=== PATIENT | male | born 1970 | race Caucasian/White ===

== ENCOUNTER 2016-08-10 15:54 | Emergency (ER) | payer SELFPAY ==
[2016-08-10] MEDS ORDERED: Ondansetron 4 MG/2 ML SDV IVPUSH ONE (16:29)
[2016-08-10] MEDS ORDERED: Sodium Chloride 0.9% 2.5 ML Syringe FLUSH PRN (16:29)
[2016-08-10] MEDS ORDERED: Pantoprazole 40 MG Vial IVPUSH ONE (16:29)
[2016-08-10] MEDS ORDERED: Sodium Chloride 0.9% 1,000 ML IV ONE (16:29)
[2016-08-10] MEDS ORDERED: Sodium Chloride 0.9% 10 ML Syringe FLUSH PRN (16:29)
--- NOTE | 2016-08-10 16:33 | EDM.PDOC ---
ED HPI GENERAL MEDICAL PROBLEM - General Chief Complaint: Gastrointestinal Problem Stated Complaint: SEVERE ABDOMINAL PAIN/VOMITING Time Seen by Provider: 08/10/16 16:00 - History of Present Illness INITIAL COMMENTS - FREE TEXT/NARRATIVE: HISTORY AND PHYSICAL: History of present illness: The patient is a 46-year-old male who does not live here locally and travels with the [facility] and has a 2 year history of episodic right-sided abdominal pain which is not this really associated with any foods or alcohol use; he comes in tonight saying that he has 1-2 episodes minimal per month which is not new for him but last evening he had a very severe episode of this pain which woke him from sleep at 3 AM. It was associated with multiple episodes of vomiting which were dark in color. He's had no diarrhea and has had no black or bloody stools and has no urinary complaints of hematuria but does state he is going to the bathroom more often. The patient has a history of "liver problems" that he believes he was diagnosed with hep C many years ago from chronic alcohol use and heavy alcohol use when he was younger. He does admit that he does drink semi-regularly since that time and his last drink was 3 days ago. The patient has not taken any [id number] medications and says the pain is all longer as intense as it was this morning. Patient states that the pain will radiate up to his right upper abdomen and his right flank but not to his chest. He is Concerned about his liver. He has no gallbladder or colon issues and no history of pancreatitis. Patient denies any chest pain or shortness of breath but has had feverish feelings but no documented fever no upper respiratory symptoms. He's eating and drinking normally and has no history of food intolerance. Patient currently does not have a GI physician. The patient states he has a history of hypertension and he supposed be on medications but he does not have those meds and has not taken them Review of systems: As per history of present illness and below otherwise all systems reviewed and negative. Past medical history: As per history of present illness and as reviewed below otherwise noncontributory. Surgical history: As per history of present illness and as reviewed below otherwise noncontributory. Social history: No reported history of drug or alcohol abuse. Family history: As per history of present illness and as reviewed below otherwise noncontributory. Physical exam: Gen.: Well-developed well-nourished thin man is nontoxic and moves easily in ED without distress. Vital signs of the note by me HEENT: Atraumatic, normocephalic, pupils reactive, negative for conjunctival pallor or scleral icterus, mucous membranes moist, throat clear, neck supple, nontender, trachea midline. Lungs: Clear to auscultation, breath sounds equal bilaterally, chest nontender. Heart: S1S2, regular, negative for clicks, rubs, or JVD. Abdomen: Soft, nondistended, nontender. On my exam I was unable to elicit any tenderness on deep palpation on the right side of the abdomen. Bowel sounds are slightly hypoactive Negative for masses or hepatosplenomegaly. Negative for costovertebral tenderness. Pelvis: Stable nontender. Genitourinary: Deferred. Rectal: Normal tone no evidence of any masses or external hemorrhoids and no fissures. Stool is light brown in color and Hemoccult negative Extremities: Atraumatic, negative for cords or calf pain. Neurovascular unremarkable. Neuro: Awake, alert, oriented. Cranial nerves II through XII unremarkable. Cerebellum unremarkable. Motor and sensory unremarkable throughout. Exam nonfocal. Diagnostics: CBC CMP amylase lipase INR CT scan of the abdomen and pelvis Therapeutics: IV fluids Zofran Protonix I discussed with the patient all testing results and have recommended follow- up with GI or one of our clinic physicians for endoscopy. I will place him on a PPI and have advised him to refrain from alcohol use as well as other gastric irritating foods and substances. Advised him on reasons to return to the ED. Impression: Episodic abdominal pain acute on chronic stable Definitive disposition and diagnosis as appropriate pending reevaluation and review of above. Abdominal Pain Score (Numeric/FACES): 8 - Related Data Allergies Allergy/AdvReac Type Severity Reaction Status Date / Time morphine Allergy Edema Verified 08/10/16 16:12 Penicillins Allergy Edema Verified 08/10/16 16:12 Home Meds: Home Meds . [No Known Home Meds] 08/10/16 [History] Past Medical History - Past Health History Medical/Surgical History: Denies Medical/Surgical History Cardiovascular History: Reports: Hypertension Gastrointestinal History: Reports: Hepatitis Other Gastrointestinal History: Hepatitis B diagnosed 4 years ago - Infectious Disease History Infectious Disease History: Reports: Chicken Pox, Hepatitis B - Past Surgical History GI Surgical History: Reports: None Social & Family History - Family History Family Medical History: Noncontributory - Tobacco Use Smoking Status *Q: Current Every Day Smoker Years of Tobacco use: 35 Packs/Tins Daily: 1 Used Tobacco, but Quit: No Second Hand Smoke Exposure: Yes - Caffeine Use Caffeine Use: Reports: Coffee - Alcohol Use Days Per Week of Alcohol Use: 4 Number of Drinks Per Day: 3 Total Drinks Per Week: 12 - Recreational Drug Use Recreational Drug Use: Yes Drug Use in Last 12 Months: Yes Recreational Drug Type: Reports: Marijuana/Hashish Recreational Drug Use Frequency: Weekly ED ROS GENERAL - Review of Systems Review Of Systems: ROS reveals no pertinent complaints other than HPI. ED EXAM, GENERAL - Physical Exam Exam: See Below (See dictation) Course - Vital Signs Last Recorded V/S: Last Vital Signs Temp 36.9 C 08/10/16 16:13 Pulse 103 H 08/10/16 16:13 Resp 18 08/10/16 16:13 BP 133/91 H 08/10/16 16:13 Pulse Ox 97 08/10/16 16:13 - Orders/Labs/Meds Orders: Active Orders 24 hr Category Date Time Status Abdomen Pelvis w Cont [CT] Stat Exams 08/10/16 16:28 Taken Sodium Chloride 0.9% [Saline Flush] Med 08/10/16 16:29 Active 10 ml FLUSH ASDIRECTED PRN Sodium Chloride 0.9% [Saline Flush] Med 08/10/16 16:29 Active 2.5 ml FLUSH ASDIRECTED PRN Saline Lock Insert [OM.PC] Stat Oth 08/10/16 16:28 Ordered Medication Orders Sodium Chloride (Saline Flush) 10 ml FLUSH ASDIRECTED PRN PRN Reason: Keep Vein Open Last Admin: 08/10/16 17:00 Dose: 10 ml Sodium Chloride (Saline Flush) 2.5 ml FLUSH ASDIRECTED PRN PRN Reason: Keep Vein Open Last Admin: 08/10/16 17:00 Dose: 2.5 ml Labs: Laboratory Tests 08/10/16 08/10/16 08/10/16 Range/Units 16:39 16:39 16:39 WBC 11.53 H (4.0-11.0) K/uL RBC 5.38 (4.50-5.90) M/uL Hgb 16.7 (13.0-17.0) g/dL Hct 48.9 (38.0-50.0) % MCV 90.9 (80.0-98.0) fL MCH 31.0 (27.0-32.0) pg MCHC 34.2 (31.0-37.0) g/dL RDW Std Deviation 47.5 (28.0-62.0) fl RDW Coeff of Jaison 14 (11.0-15.0) % Plt Count 342 (150-400) K/uL MPV 8.90 (7.40-12.00) fL Neut % (Auto) 61.0 (48.0-80.0) % Lymph % (Auto) 27.1 (16.0-40.0) % [place] % (Auto) 11.4 (0.0-15.0) % Eos % (Auto) 0.3 (0.0-7.0) % Baso % (Auto) 0.2 (0.0-1.5) % Neut # (Auto) 7.0 H (1.4-5.7) K/uL Lymph # (Auto) 3.1 H (0.6-2.4) K/uL [place] # (Auto) 1.3 H (0.0-0.8) K/uL Eos # (Auto) 0.0 (0.0-0.7) K/uL Baso # (Auto) 0.0 (0.0-0.1) K/uL Nucleated RBC % 0.0 /100WBC Nucleated RBCs # 0 K/uL INR 0.98 (0.86-1.11) Sodium 140 (136-146) mmol/L Potassium 4.2 (3.5-5.1) mmol/L Chloride 103 (98-110) mmol/L Carbon Dioxide 27 (21-31) mmol/L BUN 17 (6.0-23.0) mg/dL Creatinine 1.0 (0.6-1.5) mg/dL Est Cr Clr Drug Dosing 100.43 mL/min Estimated GFR (MDRD) > 60.0 ml/min Glucose 100 (60-110) mg/dL Calcium 9.3 (8.8-10.8) mg/dL Total Bilirubin 0.7 (0.1-1.5) mg/dL AST 37 (5-40) IU/L ALT 50 (8-54) IU/L Alkaline Phosphatase 93 (40-150) Total Protein 7.9 (6.0-8.0) g/dL Albumin 4.5 (3.5-5.0) g/dL Globulin 3.4 (2.0-3.5) g/dL Albumin/Globulin Ratio 1.3 (1.3-2.8) Amylase 60 (10-90) U/L Lipase 18 (7-80) U/L Meds: Medications Generic Name Dose Route Start Last Admin Trade Name Freq PRN Reason Stop Dose Admin Sodium Chloride 10 ml 08/10/16 16:29 08/10/16 17:00 Saline Flush FLUSH 10 ml ASDIRECTED PRN Administration Keep Vein Open Sodium Chloride 2.5 ml 08/10/16 16:29 08/10/16 17:00 Saline Flush FLUSH 2.5 ml ASDIRECTED PRN Administration Keep Vein Open Discontinued Medications Generic Name Dose Route Start Last Admin Trade Name Freq PRN Reason Stop Dose Admin Sodium Chloride 1,000 mls @ 999 mls/hr 08/10/16 16:29 08/10/16 16:59 Normal Saline IV 08/10/16 17:29 999 mls/hr STAT ONE Administration Ondansetron HCl 4 mg 08/10/16 16:29 08/10/16 16:59 Zofran IVPUSH 08/10/16 16:30 4 mg ONETIME ONE Administration Pantoprazole Sodium 80 mg 08/10/16 16:29 08/10/16 16:59 Protonix Iv IVPUSH 08/10/16 16:30 80 mg .BOLUS ONE Administration Departure - Departure Time of Disposition: 18:15 Disposition: Home, Self-Care 01 Condition: Good Clinical Impression: Abdominal pain, Vomiting - Discharge Information Forms: ED Department Discharge Additional Instructions: The following information is given to patients seen in the emergency department who are being discharged to home. This information is to outline your options for follow-up care. We provide all patients seen in our emergency department with a follow-up referral. The need for follow-up, as well as the timing and circumstances, are variable depending upon the specifics of your emergency department visit. If you don't have a primary care physician on staff, we will provide you with a referral. We always advise you to contact your personal physician following an emergency department visit to inform them of the circumstance of the visit and for follow-up with them and/or the need for any referrals to a consulting specialist. The emergency department will also refer you to a specialist when appropriate. This referral assures that you have the opportunity for followup care with a specialist. All of these measure are taken in an effort to provide you with optimal care, which includes your followup. Under all circumstances we always encourage you to contact your private physician who remains a resource for coordinating your care. When calling for followup care, please make the office aware that this follow-up is from your recent emergency room visit. If for any reason you are refused follow-up, please contact the [facility] emergency department at and ask to speak to the emergency department charge nurse. [facility] Primary care- Internal Medicine and [facility] [address] [place] [id number] [facility] Specialty Care-General Surgery Professional Building [address] [place] [id number] Please contact one of our primary care physicians and one of our surgeons to assist with further testing and evaluation of your symptoms. If you cannot do this here in town please do it when you get home as soon as possible. Please take medication as prescribed and avoid alcohol use caffeine use and other irritating foods and substances. Return to ER as needed and as discussed. - My Orders Last 24 Hours: My Active Orders 08/10/16 16:28 Abdomen Pelvis w Cont [CT] Stat Saline Lock Insert [OM.PC] Stat 08/10/16 16:29 Sodium Chloride 0.9% [Saline Flush] 10 ml FLUSH ASDIRECTED PRN Sodium Chloride 0.9% [Saline Flush] 2.5 ml FLUSH ASDIRECTED PRN - Assessment/Plan Last 24 Hours: My Active Orders 08/10/16 16:28 Abdomen Pelvis w Cont [CT] Stat Saline Lock Insert [OM.PC] Stat 08/10/16 16:29 Sodium Chloride 0.9% [Saline Flush] 10 ml FLUSH ASDIRECTED PRN Sodium Chloride 0.9% [Saline Flush] 2.5 ml FLUSH ASDIRECTED PRN
[2016-08-10 17:06] LABS: CHLORIDE,CL 103 mmol/L (98-110); SODIUM,NA 140 mmol/L (136-146)
[2016-08-10 18:41] VITALS: BP 147/82
[2016-08-10] MEDS ORDERED: Iopamidol 755 MG/ML 500 ML Multipack Bottle IVPUSH STA (19:19)
--- NOTE | 2016-08-11 07:54 | CT ---
EXAM DATE: 08/10/16 PATIENT'S AGE: 46 Patient: ELIAS AVINA Facility: [place], [place] Site . Site : 1970 Study: CT Abdomen/Pelvis [id number] 6:01:35 PM Ordering Physician: Ronen Piper Final Report: INDICATION: Abdominal pain. Comparison: None. Technique: CT abdomen and pelvis with intravenous contrast; no oral contrast; coronal and sagittal reformats. Findings: No abnormal intra pulmonary nodular densities through the lung bases. No evidence of pleural effusion. Normal size cardiac silhouette without any evidence of pericardial effusion. Small benign cyst segment 3 of the liver. No focal hepatic or splenic pathology. No pancreatic pathology. Gallbladder is unremarkable. No adrenal pathology. Symmetric perfusion of both the kidneys without any obstructive uropathy or perinephric pathology. No retroperitoneal lymphadenopathy. No evidence of abdominal or pelvic ascites. Normal appendix. CT study of the pelvis is unremarkable. No evidence of intestinal obstruction. Impression: Small cyst segment 3 of the liver. 1. No kidney stones or obstructive uropathy. 2. Normal appendix. 3. Negative CT of the abdomen and pelvis with intravenous contrast otherwise. Please note that all CT scans at this facility use dose modulation, iterative reconstruction, and/or weight-based dosing when appropriate to reduce radiation dose to as low as reasonably achievable. Dictated by Gwen Colvin MD @ Aug 10 2016 6:06PM (Electronic Signature) Report Signed by Proxy. [email or web address]
== END 2016-08-10 18:25 | disposition home or self-care (01) ==
LOC: MW.ED 15:54
DX: R10.9 Unspecified abdominal pain (principal); G89.29 Other chronic pain; F17.210 Nicotine dependence, cigarettes, uncomplicated; I10 Essential (primary) hypertension; Z88.0 Allergy status to penicillin; Z88.5 Allergy status to narcotic agent
CPT/HCPCS: 36415; 74177; 80053; 82150; 83690; 85025; 85610; 96361; 96374; 96375; 99284; C9113; J2405; J7040; Q9967